=== PATIENT | male | born 1990 | race Hispanic/Latino ===

== ENCOUNTER 2023-06-05 00:05 | Emergency (ER) | payer OTHER ==
[~2023-06-05] VITALS: Ht 175.3 cm; Wt 117.9 kg
[2023-06-05] MEDS ORDERED: CLIN-141 PO (01:02)
[2023-06-05] MEDS: AMOX/CLAV 875/125MG TAB PO ONE (01:03)
[2023-06-05] MEDS: CLINDAMYCIN 150 MG CAP PO ONE (01:03)
[2023-06-05 01:15] VITALS: BP 114/64; PULSE 64; RESP 16; O2SAT 100
== END 2023-06-05 01:16 | disposition home or self-care (01) ==
LOC: EDH 00:05
DX: K04.7 Periapical abscess without sinus (principal)